=== PATIENT | female | born 1985 | race Two or more races ===

== ENCOUNTER 2020-10-27 21:49 | Emergency (ER) | payer SELFPAY ==
[~2020-10-27] VITALS: Ht 157.5 cm; Wt 58.1 kg
[2020-10-27 21:57] VITALS: BP 106/76
[2020-10-27] MEDS ORDERED: LORAZEPAM INJ 2 MG/ML VIAL ONE (22:12)
[2020-10-27] MEDS ORDERED: LORAZEPAM INJ 2 MG/ML VIAL IM ONE (22:30)
--- NOTE | 2020-10-27 22:48 | NUR ---
BROUGHT TO CT AND BACK.
--- NOTE | 2020-10-28 00:13 | NUR ---
Patient discharged to home in stable condition. Written and verbal after care instructions given. Patient verbalizes understanding of instruction. Pt picked up by sister, ambulating with steady gait. stated he cannot take the pt back due to him having too many tools in his car. 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
== END 2020-10-28 01:10 | disposition home or self-care (01) ==
LOC: ER 21:51
DX: F41.9 Anxiety disorder, unspecified (principal); R41.82 Altered mental status, unspecified; Z86.73 Personal history of transient ischemic attack (TIA), and cerebral infarction without residual deficits
CPT/HCPCS: 70450; 96372; 99284; J2060